=== PATIENT | female | born 1980 ===

== ENCOUNTER → 2020-09-03 | Outpatient (REF) | payer BC | LOC: M LAB REF 21:08 | PROVIDERS: ATTEND Physician Assistant | DX: Z20.828 Contact with and (suspected) exposure to other viral communicable diseases (principal) ==

== ENCOUNTER → 2020-09-06 | Outpatient (REF) | payer BC | LOC: M LAB REF 11:05 | PROVIDERS: ATTEND Physician Assistant Medical | DX: Z20.822 Contact with and (suspected) exposure to COVID-19 (principal); R05 Cough ==